=== PATIENT | female | born 1980 | race Asian ===

== ENCOUNTER 2018-12-10 16:01 | Emergency (ER) | payer BC, MEDICAID ==
[~2018-12-10] VITALS: Ht 149.9 cm; Wt 51.8 kg
[~2018-12-10 16:01] MED LIST: GENT5DRO4 EACHEYE
[2018-12-10 18:51] VITALS: BP 102/78
[2018-12-10 19:23] LABS: CLARITY,URINE CLEAR (Clear); COLOR,URINE YELLOW (Yellow); GLUCOSE, URINE NEGATIVE (Neg); KETONES,URINE 40 mg/dl (Neg); LEUKOCYTE ESTERASE ,URINE NEGATIVE (Neg); NITRITES, URINE NEGATIVE (Neg); OCCULT BLOOD,URINE NEGATIVE (Neg); PROTEIN,URINE NEGATIVE (Neg); URINE HCG POSITIVE (NEG); UROBILINOGEN,URINE 0.2 E.U/dL (0.2-1.0)
[2018-12-10 19:25] LABS: UA COLLECTION TYPE CLN CATCH MIDSTREAM
--- NOTE | 2018-12-10 21:18 | NUR ---
[place] HAS AN ETA OF 20 MINUTES
== END 2018-12-10 22:22 | disposition home or self-care (01) ==
LOC: ER 16:02
DX: O20.9 Hemorrhage in early pregnancy, unspecified (principal); Z3A.12 12 weeks gestation of pregnancy; Z79.899 Other long term (current) drug therapy
CPT/HCPCS: 36415; 76801; 76802; 81003; 81025; 84702; 99284

== ENCOUNTER 2019-02-18 14:13 | Emergency (ER) | payer MEDICAID ==
[~2019-02-18] VITALS: Ht 149.9 cm; Wt 55.0 kg
[2019-02-18 14:50] VITALS: BP 105/69
== END 2019-02-18 17:11 | disposition home or self-care (01) ==
LOC: ER 14:14
DX: O26.892 Other specified pregnancy related conditions, second trimester (principal); M25.552 Pain in left hip; Z3A.27 27 weeks gestation of pregnancy
CPT/HCPCS: 99281